=== PATIENT | female | born 1950 | race Caucasian/White ===

== ENCOUNTER 2017-04-10 19:13 | Emergency (ER) | payer OTHER ==
[2017-04-10 19:24] VITALS: BP 135/77
[2017-04-10] MEDS ORDERED: DOXYcycline CAP(*) 100 MG PO ONE (21:37)
--- NOTE | 2017-04-10 21:49 | ED ---
IRas,Mak, scribed for Jany Woodall MD on 04/10/17 at 2117 . Bite Injury/Animal - HPI Summary HPI Summary: This 66 y/o female presents to ED for tick bite on right buttock that was noted 2 hours ago. Pt noted tick on the location and attempted to pull off and "only its head came off". Pt is currently denying any PMHx. She is nonsmoker and nondrinker. FHx is positive for DM to father and brother. Primary care involves Dr. Rowe. - History of Current Complaint Chief Complaint: EDAnimalBite Stated Complaint: TICK Time Seen by Provider: 04/10/17 21:03 Hx Obtained From: Patient, Medical Records Onset of Injury: Happened hours ago, Resolved Type of Bite: Wild Animal - tick Pain Intensity: 0 Pain Scale Used: 0-10 Numeric Aggravating Factor(s): Nothing Alleviating Factor(s): Nothing Associated Signs And Symptoms: Positive: Negative - Allergies/Home Medications Allergies/Adverse Reactions: Allergies Allergy/AdvReac Type Severity Reaction Status Date / Time No Known Allergies Allergy Verified 09/19/16 18:42 PMH/Surg Hx/FS Hx/Imm Hx Endocrine/Hematology History: Denies: Hx Anticoagulant Therapy, Hx Diabetes, Hx Thyroid Disease Cardiovascular History: Denies: Hx Congestive Heart Failure, Hx Deep Vein Thrombosis, Hx Hypertension , Hx Myocardial Infarction, Hx Pacemaker/ICD Respiratory History: Denies: Hx Asthma, Hx Chronic Obstructive Pulmonary Disease (COPD), Hx Lung Cancer, Hx Pneumonia, Hx Pulmonary Embolism GI History: Denies: Hx Gall Bladder Disease, Hx Gastrointestinal Bleed, Hx Ulcer, Hx Urosepsis History: Denies: Hx Kidney Stones, Hx Renal Disease Neurological History: Denies: Hx Dementia, Hx Migraine, Hx Seizures, Hx Transient Ischemic Attacks (TIA) Psychiatric History: Denies: Hx Anxiety, Hx Depression, Hx Schizophrenia, Hx Bipolar Disorder Infectious Disease History: No Infectious Disease History: Denies: Traveled Outside the [place] in Last 30 Days - Family History Known Family History: Positive: Cardiac Disease, Diabetes - Positive to father and brother, Other - son with psychosis Negative: Hypertension - Social History Alcohol Use: None Substance Use Type: Reports: None Smoking Status (MU): Never Smoked Tobacco Review of Systems Negative: Fever Positive: Other - tick bite on righ buttock All Other Systems Reviewed And Are Negative: Yes Physical Exam Triage Information Reviewed: Yes Vital Signs On Initial Exam: Initial Vitals Temp Pulse Resp BP Pulse Ox 97 F 83 16 135/77 97 04/10/17 19:22 04/10/17 19:22 04/10/17 19:22 04/10/17 19:22 04/10/17 19:22 Vital Signs Reviewed: Yes Appearance: Positive: Well-Appearing, No Pain Distress Skin: Positive: Other - portion of tick remains on right buttock Head/Face: Positive: Normal Head/Face Inspection Eyes: Positive: EOMI, ALDO Neck: Positive: Supple, Nontender Respiratory/Lung Sounds: Positive: Clear to Auscultation, Breath Sounds Present Cardiovascular: Positive: RRR, Pulses are Symmetrical in both Upper and Lower Extremities Musculoskeletal: Positive: Strength/ROM Intact Neurological: Positive: Sensory/Motor Intact, Alert, Oriented to Person Place, Time Psychiatric: Positive: Affect/Mood Appropriate AVPU Assessment: Alert Diagnostics - Vital Signs Vital Signs Temp Pulse Resp BP Pulse Ox 04/10/17 19:22 97 F 83 16 135/77 97 - Laboratory Lab Statement: Any lab studies that have been ordered have been reviewed, and results considered in the medical decision making process. Re-Evaluation - Re-Evaluation First Eval Re-Evaluation Time: 21:32 Comment: MD in room and removed the rest of the tick on right buttock. Bite Injury Course/Dx - Course Assessment/Plan: tick removed and 200 mg of doxy given - Diagnoses Provider Diagnosis: Tick bite Discharge - Discharge Plan Condition: Stable Disposition: HOME Patient Education Materials: Doxycycline (By mouth), Tick Bite (ED) Referrals: Be Rowe MD [Primary Care Provider] - 2 Days The documentation as recorded by the Ras conway Soohyun accurately reflects the service I personally performed and the decisions made by me, Jany Woodall MD.
== END 2017-04-10 21:49 | disposition home or self-care (01) ==
LOC: ED 19:13
DX: S30.860A Insect bite (nonvenomous) of lower back and pelvis, initial encounter (principal); W57.XXXA Bitten or stung by nonvenomous insect and other nonvenomous arthropods, initial encounter; Y93.9 Activity, unspecified; Y92.9 Unspecified place or not applicable; Y99.9 Unspecified external cause status
CPT/HCPCS: 99281; A9270-GY

== ENCOUNTER 2018-04-16 15:36 | Emergency (ER) | payer SELFPAY ==
[2018-04-16 16:10] VITALS: BP 110/68
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
== END 2018-04-16 17:10 | disposition home or self-care (01) ==
LOC: UCEAST 15:36
DX: S16.1XXA Strain of muscle, fascia and tendon at neck level, initial encounter (principal); S06.0X9A Concussion with loss of consciousness of unspecified duration, initial encounter; V43.53XA Car driver injured in collision with pick-up truck in traffic accident, initial encounter; Y93.89 Activity, other specified; Y92.410 Unspecified street and highway as the place of occurrence of the external cause
CPT/HCPCS: 99212; G0463

== ENCOUNTER 2019-05-26 14:07 | Emergency (ER) | payer MEDICARE, OTHER ==
[2019-05-26 15:06] VITALS: BP 142/91
--- NOTE | 2019-05-26 15:41 | UC ---
Lower Extremity/Ankle HPI - HPI Summary HPI Summary: Tick under left arm- found it today. Had lyme disease 2 years ago. 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 ?: No Onset/Duration: Sudden Onset - of tick bite less than 24 hours, pot to foot was last week Severity Initially: Mild Severity Currently: Mild Pain Intensity: 0 Aggravating Factor(s): Standing, Ambulation Alleviating Factor(s): Rest Able to Bear Weight: Yes - Allergies/Home Medications Allergies/Adverse Reactions: Allergies Allergy/AdvReac Type Severity Reaction Status Date / Time No Known Allergies Allergy Verified 05/26/19 15:06 PMH/Surg Hx/FS Hx/Imm Hx Previously Healthy: Yes Other History Of: Negative For: HIV, Hepatitis B, Hepatitis C, Anticoagulant Therapy - Surgical History Surgical History: Yes Surgery Procedure, Year, and Place: skin cancer from [place] - Family History Known Family History: Positive: Cardiac Disease, Diabetes - Positive to father and brother, Other - son with psychosis Negative: Hypertension - Social History Alcohol Use: None Substance Use Type: None Smoking Status (MU): Never Smoked Tobacco Review of Systems All Other Systems Reviewed And Are Negative: Yes Skin: Positive: Other - tick in chest, bruising of the left foot Eyes: Positive: Negative ENT: Positive: Negative Respiratory: Positive: Negative Cardiovascular: Positive: Negative Gastrointestinal: Positive: Negative Genitourinary: Positive: Negative Motor: Positive: Negative Neurovascular: Positive: Negative Musculoskeletal: Positive: Edema Physical Exam Triage Information Reviewed: Yes Appearance: Well-Appearing, Well-Nourished, Pain Distress Vital Signs: Initial Vital Signs Temp 99.6 F 05/26/19 15:01 Pulse 67 05/26/19 15:01 Resp 12 05/26/19 15:01 BP 142/91 05/26/19 15:01 Pulse Ox 98 05/26/19 15:01 Vital Signs Reviewed: Yes Eye Exam: Normal ENT Exam: Normal Dental Exam: Normal Neck exam: Normal Respiratory Exam: Normal Cardiovascular Exam: Normal Abdominal Exam: Normal Bowel Sounds: Positive: Present Musculoskeletal: Positive: Strength Intact, ROM Intact, Edema @ - of the left great toe Neurological Exam: Normal Psychological Exam: Normal Skin: Positive: Other - tick intact in the left side of chest Lower Extremity Course/Dx - Course Course Of Treatment: hx obtained, exam performed ,meds reviewed, tick removed without difficulty, educated on care of swelling and bruising of foot, it was agreed by myself and patient that an xray was not necesssary - Differential Dx/Diagnosis Provider Diagnosis: Contusion of left foot, Tick bite Discharge - Sign-Out/Discharge Documenting (check all that apply): Patient Departure All imaging exams completed and their final reports reviewed: No Studies - Discharge Plan Condition: Stable Disposition: HOME Prescriptions: DOXYcycline CAP(*) [DOXYcycline 100MG CAP(*)] 200 mg PO ONCE #2 cap Patient Education Materials: Tick Bite (ED), Foot Contusion (ED) Referrals: Cyn Gautam MD [Primary Care Provider] - Additional Instructions: 1. take the medication with your next meal 2. Follow up with your Doctor if you exhibit any of the symptoms listed for lyme disease 3. Warm water soaks for your foot daily to help the swelling move out of the foot. - Billing Disposition and Condition Condition: STABLE Disposition: Home
== END 2019-05-26 15:52 | disposition home or self-care (01) ==
LOC: UCEAST 14:07
DX: S40.862A Insect bite (nonvenomous) of left upper arm, initial encounter (principal); W57.XXXA Bitten or stung by nonvenomous insect and other nonvenomous arthropods, initial encounter; Y92.9 Unspecified place or not applicable; S90.32XA Contusion of left foot, initial encounter; W22.8XXA Striking against or struck by other objects, initial encounter; Z85.828 Personal history of other malignant neoplasm of skin
CPT/HCPCS: 99212; G0463